=== PATIENT | male | born 1990 | race Caucasian/White ===

== ENCOUNTER 2017-10-09 11:33 | Emergency (ER) | payer MEDICAID ==
[2017-10-09 11:46] VITALS: BP 123/78; PULSE 74; RESP 18; TEMP 98.6; O2SAT 100
--- NOTE | 2017-10-09 12:50 | RAD ---
Date of service: 10/09/2017 PROCEDURE: Radiographs of the Lumbar Spine. HISTORY: low back pain after injury COMPARISON: No prior. FINDINGS: BONES: Normal alignment. No listhesis. No fracture. DISC SPACES: Unremarkable. OTHER FINDINGS: None. IMPRESSION: Unremarkable radiographs of the lumbar spine.
--- NOTE | 2017-10-09 13:20 | C.PDOC ---
History Of Present Illness 26 year old male presents to the ER with a complaint of left lower back pain for the past 4-5 days. Patient has been taking Etodolac as prescribed by his PMD with some relief. Patient denies falls/injuries, radiation of pain, dysuria /hematuria, abdominal pain, sensory changes, urinary retention, bowel/bladder incontinence. Time Seen by Provider: 10/09/17 11:51 Chief Complaint (Nursing): Back Pain History Per: Patient History/Exam Limitations: no limitations Onset/Duration Of Symptoms: Days Current Symptoms Are (Timing): Still Present Quality Of Discomfort: "Pain" Severity: Mild Previous Symptoms: None Associated Symptoms: None. denies: Incontinence, New Weakness, New Numbness Exacerbating Factor(s): Movement Recent travel outside of the [place]: No Past Medical History Reviewed: Historical Data, Nursing Documentation, Vital Signs Vital Signs: Last Vital Signs Temp 98.6 F 10/09/17 11:43 Pulse 74 10/09/17 11:43 Resp 18 10/09/17 11:43 BP 123/78 10/09/17 11:43 Pulse Ox 100 10/09/17 17:18 - Medical History PMH: No Chronic Diseases Family History: States: No Known Family Hx - Social History Hx Alcohol Use: Yes Hx Substance Use: No - Immunization History Hx Tetanus Toxoid Vaccination: Yes Hx Influenza Vaccination: No Hx Pneumococcal Vaccination: Yes Review Of Systems Constitutional: Negative for: Fever, Chills Gastrointestinal: Negative for: Nausea, Vomiting, Abdominal Pain, Diarrhea Genitourinary: Negative for: Dysuria, Incontinence, Hematuria Musculoskeletal: Positive for: Back Pain Skin: Negative for: Rash Neurological: Negative for: Weakness, Numbness Physical Exam - Physical Exam Appears: Well, Non-toxic, No Acute Distress Skin: Normal Color, Warm, Dry, No Rash Head: Normacephalic Eye(s): bilateral: Normal Inspection Cardiovascular: Rhythm Regular Respiratory: Normal Breath Sounds, No Rales, No Rhonchi, No Wheezing Gastrointestinal/Abdominal: Normal Exam, Bowel Sounds, Soft, No Tenderness Back: No CVA Tenderness, No Vertebral Tenderness, Paraspinal Tenderness (lumbar ) Neurological/Psych: Oriented x3, Normal Motor, Normal Sensation Gait: Steady ED Course And Treatment O2 Sat by Pulse Oximetry: 100 (Room air) Pulse Ox Interpretation: Normal - Other Rad LS spine x-ray X-Ray: Interpreted by Me, Viewed By Me Interpretation: PROCEDURE: Radiographs of the Lumbar Spine. HISTORY: low back pain after injury. COMPARISON: No prior. FINDINGS: BONES: Normal alignment. No listhesis. No fracture. DISC SPACES: Unremarkable. OTHER FINDINGS: None. IMPRESSION: Unremarkable radiographs of the lumbar spine. Progress Note: Xray of LS spine ordered and reviewed - neg for aucte bony injury. Patient given PO Flexeril, PO Motrin. Reevaluation Time: 13:15 Reassessment Condition: Improved (On reassessment, patient is resting comfortably and states his pain has improved. He is ambulating normally in the ED. Rx for flexeril given, and patient instructed to take it with his Etodolac. Patient instructed to follow up with PMD in 1-2 days, and he understands he should return to ED if symptoms worsen.) Disposition Counseled Patient/Family Regarding: Diagnosis, Need For Followup, Rx Given - Disposition Referrals: [facility] [Outside] Disposition: HOME/ ROUTINE Disposition Time: 13:15 Condition: STABLE Additional Instructions: FOLLOW UP WITH YOUR DOCTOR IN 1-2 DAYS USE FLEXERIL IN CONJUNCTION WITH YOUR NSAID MEDICATION RETURN TO ER IF SYMPTOMS WORSEN Prescriptions: Cyclobenzaprine [Flexeril] 10 mg PO BID PRN #15 tab PRN Reason: Muscle Spasm Forms: [facility] (Marshallese) Print Language: POLISH - Clinical Impression Clinical Impression: Low back pain - Scribe Statement The provider has reviewed the documentation as recorded by the Scribgutierrez Mcneill All medical record entries made by the Scribe were at my direction and personally dictated by me. I have reviewed the chart and agree that the record accurately reflects my personal performance of the history, physical exam, medical decision making, and the department course for this patient. I have also personally directed, reviewed, and agree with the discharge instructions and disposition.
== END 2017-10-09 13:24 | disposition home or self-care (01) ==
LOC: C.ER 11:33
DX: M54.5 Low back pain (principal)